=== PATIENT | female | born 2000 | race Caucasian/White ===

== ENCOUNTER 2024-03-09 22:28 | Emergency (ER) | payer OTHER ==
[2024-03-09 22:48] VITALS: O2SAT 100
--- NOTE | 2024-03-10 01:39 | ED Physician Documentation ---
PD HPI HEENT - Stated complaint Stated Complaint: L EAR PX - Chief complaint Chief Complaint: Heent - History obtained from History obtained from: Patient - Additional information Additional information: HPI from patient. Patient c/o left ear pain, pressure x 1-2 days. Since earlier today, she has had intermittent thick brown and, at times, bloody discharge from the left ear associated with rapidly decreasing hearing from the left ear. She has had URI symptoms last few days (sinus congestion, mild [employer]CRU[employer]PER[employer] cough). Denies h/o similar symptoms. PD PAST MEDICAL HISTORY - Past Medical History Past Medical History: No Cardiovascular: None Respiratory: None Neuro: None Endocrine/Autoimmune: None GI: None CIRCUS TRAINER: None : None HEENT: None Psych: None Musculoskeletal: None Derm: None - Past Surgical History Past Surgical History: No - Present Medications Home Medications: Ambulatory Orders Medication Instructions Recorded Confirmed Norgestimate-Ethinyl Estradiol 1 tab PO DAILY 03/09/24 03/09/24 [Sprintec 28 Day Tablet] Amox/Clav 875/125 [Augmentin 1 tablet PO Q12H 7 Days #14 tablet 03/10/24 875/125 Tab] - Allergies Allergies/Adverse Reactions: Allergies Allergy/AdvReac Type Severity Reaction Status Date / Time No Known Drug Allergies Allergy Verified 03/09/24 22:41 - Social History Does the pt smoke?: No Smoking Status: Never smoker Does the pt drink ETOH?: No ETOH Use: Beer - Immunizations Immunizations are current?: Yes PD ED PE NORMAL - Vitals Vital signs reviewed: Yes - General General: Alert and oriented X 3, No acute distress, Well developed/nourished - Neck Neck: Supple, no meningeal sign PD ED PE EXPANDED - HEENT HEENT: R TM red, R TM loss of landmarks, Other (right TM uniformly crimson with complete loss of landmarks; there is brown, bubbling discharge around periphery of the TM, obscuring view of the entirety of the TM. no directly visualized perforation. EAC mildly erythematous but minimally edematous) Results - Vitals Vitals: Oxygen O2 Source Room air PD Medical Decision Making - ED course Complexity details: considered differential, d/w patient ED course: left TM likely ruptured; although no rupture directly visualized, most likely site would be at periphery which is obscured by thick, brown discharge with bubbles (suggestive of middle ear source). Furthermore, the EAC is not inflamed and edematous to an extent that would correlate with this d/c, further making (ruptured) middle ear the source of this purulence. She is given ciprodex drops in ED with bottle to take home (instructed on dosage, frequency, and length of treatment) and PO augmentin. I have e-prescribed a one-week course of augmentin to her pharmacy of choice, and advised her to seek follow up with ENT (will likely need referral through insurance/PCP) Departure - Departure Disposition: Home, Self Care Clinical Impression: Otitis media Qualifiers: Otitis media type: suppurative Chronicity: acute Laterality: left Recurrence: not specified as recurrent Spontaneous tympanic membrane rupture: with spontaneous rupture Qualified Code(s): H66.012 - Acute suppurative otitis media with spontaneous rupture of ear drum, left ear Condition: Good Instructions: ED Rupture Eardrum Infec Prescriptions: Amox/Clav 875/125 [Augmentin 875/125 Tab] 1 tablet PO Q12H 7 Days #14 tablet Comments: I suspect you have sustained a ruptured eardrum of the left ear due to a middle ear infection. There is a moderate amount of fluid around the eardrum on my exam, making it difficult to visualize the entirety of the tympanic membrane (eardrum). Thus, I do not actually visualize a defect or rupture in the eardrum, but the overall appearance of the eardrum and the fluid around it, as well as your description of symptoms, all suggest this diagnosis. Fortunately, most patients in this scenario will have gradual spontaneous healing of the eardrum without any long-term decrease in hearing. Realize this may take several weeks. As we discussed, because there is also a possibility that the pain and fluid are from an outer ear infection, I am also providing you with antibiotic eardrops. Realize that, if the ear drum is indeed ruptured, these eardrops are safe to use. The antibiotic drops should be used as follows: 4 drops in right ear twice per day for one week. You were given the first dose of an oral antibiotic (Augmentin) in the emergency department for the middle ear infection. I have electronically submitted a prescription for a 1-week course of this antibiotic to the [facility] pharmacy in [place]. I recommend following up with a specialist (ENT) within one week for reevaluation. You should contact either your primary care provider's office or your insurance provider to inquire as to the referral process. Forms: PCP List Discharge Date/Time: 03/10/24 02:19
[2024-03-10 02:05] VITALS: BP 141/89
[2024-03-10] MEDS: AMOX/CLAV 875 MG/125 MG TABLET PO STA (02:08)
[2024-03-10] MEDS: CIPROFLOX/DEXAMETH OTIC DROPS LEFTEAR STA (02:08)
== END 2024-03-10 02:19 | disposition home or self-care (01) ==
LOC: ED 22:28
DX: H66.012 Acute suppurative otitis media with spontaneous rupture of ear drum, left ear (principal)
CPT/HCPCS: 99283; A9270